=== PATIENT | male | born 1990 | race Caucasian/White ===

== ENCOUNTER 2016-07-19 08:02 | Emergency (ER) | payer SELFPAY ==
[~2016-07-19] VITALS: Ht 175.3 cm; Wt 69.9 kg
[2016-07-19 08:05] VITALS: BP 126/78
== END 2016-07-19 09:29 | disposition home or self-care (01) ==
LOC: ER 08:02
DX: F41.9 Anxiety disorder, unspecified (principal); Z88.1 Allergy status to other antibiotic agents

== ENCOUNTER 2016-07-25 11:28 | Emergency (ER) | payer MEDICAID ==
[~2016-07-25] VITALS: Ht 175.3 cm; Wt 70.3 kg
[2016-07-25 11:35] VITALS: BP 114/75
== END 2016-07-25 14:00 | disposition home or self-care (01) ==
LOC: ER 11:32
DX: F41.9 Anxiety disorder, unspecified (principal); Z76.0 Encounter for issue of repeat prescription; Z88.1 Allergy status to other antibiotic agents

== ENCOUNTER 2016-11-04 14:55 | Emergency (ER) | payer MEDICAID ==
[~2016-11-04] VITALS: Ht 175.3 cm; Wt 74.8 kg
[2016-11-04 16:15] VITALS: BP 120/75
[2016-11-04] MEDS ORDERED: LORazepam 2MG/ML-1ML VIAL IM ONE (16:30)
== END 2016-11-04 17:00 | disposition home or self-care (01) ==
LOC: ER 15:01
DX: F41.9 Anxiety disorder, unspecified (principal); Z76.0 Encounter for issue of repeat prescription
CPT/HCPCS: 96372; 99283; J2060